=== PATIENT | female | born 1950 | race African-American/Black ===

== ENCOUNTER 2022-01-04 18:59 | Emergency (ER) | payer SELFPAY ==
[~2022-01-04] VITALS: Ht 170.2 cm; Wt 65.0 kg
[2022-01-04 19:08] VITALS: BP 128/72
== END 2022-01-04 21:00 | disposition left against medical advice (07) ==
LOC: ER 18:59
DX: S29.8XXA Other specified injuries of thorax, initial encounter (principal); V49.59XA Passenger injured in collision with other motor vehicles in traffic accident, initial encounter; Y93.89 Activity, other specified; Y92.488 Other paved roadways as the place of occurrence of the external cause; I10 Essential (primary) hypertension; E11.9 Type 2 diabetes mellitus without complications
CPT/HCPCS: 93005; 99283